=== PATIENT | female | born 1970 | race Caucasian/White ===

== ENCOUNTER 2020-11-04 15:43 | Emergency (ER) | payer BC ==
[2020-11-04 17:19] LABS: HEMOGLOBIN 13.1 gm/dl (12.3-15.3); RED BLOOD COUNT 4.41 M/UL (4.00-5.10); WHITE BLOOD COUNT 4.6 K/UL (4.5-11.0)
[2020-11-04] MEDS ORDERED: VENTOLIN HFA 66.7 GM INH (18:48)
[2020-11-04] MEDS ORDERED: LODINE CAP 300300 MG PO (18:48)
[2020-11-04 20:47] LABS: BUN/CREATININE RATIO 16 (0-10)
== END 2020-11-04 21:30 | disposition home or self-care (01) ==
LOC: ER1 15:43
PROVIDERS: Nurse Practitioner
DX: Z23 Encounter for immunization (principal); U07.1 COVID-19; I10 Essential (primary) hypertension; Z88.8 Allergy status to other drugs, medicaments and biological substances; Z90.49 Acquired absence of other specified parts of digestive tract
CPT/HCPCS: 71045; 80053; 82550; 82553; 83615; 83874; 84484; 85025; 86140; 93005; 96374; 99284; J2405; M0243